=== PATIENT | female | born 1975 | race Caucasian/White ===

== ENCOUNTER 2023-12-20 12:00 | Outpatient (CLI) | payer OTHER, MEDICAID ==
--- NOTE | 2023-12-21 08:30 | XRAY Report ---
PROCEDURE: Ankle 3+V LT INDICATIONS: SPRAIN OF UNSPECIFIED LIGAMENT OF LEFT ANKLE TECHNIQUE: 3 views of the ankle were acquired. COMPARISON: None. FINDINGS: Bones: Mildly displaced spiral fracture of the distal fibula involving the ankle mortise. Ankle mor tise is normally aligned. No suspicious bony lesions. Soft tissues: Small tibiotalar joint effusion. Achilles tendon appears normal. Soft tissue swellin g over the lateral malleolus. IMPRESSION: Distal fibular fracture. Reviewed by: Manan Hathaway MD on 12/21/2023 8:29 AM PDT Approved by: Manan Hathaway MD on 12/21/2023 8:29 AM PDT Station ID: [id number]
== END 2023-12-20 12:15 | disposition home or self-care (01) ==
LOC: DI.N 12:00
PROVIDERS: ATTEND Physician Assistant Medical
DX: S82.832A Other fracture of upper and lower end of left fibula, initial encounter for closed fracture (principal)

== ENCOUNTER 2023-12-26 09:52 | Outpatient (CLI) | payer OTHER, MEDICAID ==
--- NOTE | 2023-12-26 12:10 | XRAY Report ---
PROCEDURE: Ankle 3+V LT INDICATIONS: LEFT ANKLE FRACTURE TECHNIQUE: 3 views of the ankle were acquired. COMPARISON: Left ankle radiograph on December 20, 2023. FINDINGS: Bones: Similar appearance of acute, mildly displaced, predominantly oblique fracture of the distal f ibular diaphysis. Ankle mortise is normally aligned on nonweightbearing view. No suspicious bony le sions. Soft tissues: No tibiotalar joint effusion. Achilles tendon appears normal. Moderate soft tissue s welling about the ankle. IMPRESSION: Acute, mildly displaced fracture of the distal fibular diaphysis. Stable alignment. Reviewed by: Todd Chaparro MD on 12/26/2023 12:09 PM PDT Approved by: Todd Chaparro MD on 12/26/2023 12:09 PM PDT Station ID: [id number]
== END 2023-12-26 09:53 | disposition home or self-care (01) ==
LOC: DI 09:52
PROVIDERS: ATTEND Physician Assistant Surgical
DX: S82.62XA Displaced fracture of lateral malleolus of left fibula, initial encounter for closed fracture (principal)